=== PATIENT | female | born 1965 | race Hispanic/Latino ===

== ENCOUNTER 2016-05-31 12:14 | Emergency (ER) | payer MEDICAID ==
[2016-05-31 12:15] VITALS: BMI 23.0
[2016-05-31 12:35] VITALS: BP 129/86; PULSE 88; RESP 18; TEMP 98.6; O2SAT 97
--- NOTE | 2016-05-31 13:31 | RAD ---
PROCEDURE: Radiographs of the Right Shoulder HISTORY: shoulder pain x 2 weeks s/p fall COMPARISON: Chest x-ray 03/10/2016 FINDINGS: BONES: There is a minimally displaced fracture of the distal clavicle adjacent to the acromioclavicular joint. JOINTS: Normal. Glenohumeral and acromioclavicular joints preserved. No osteoarthritis. SOFT TISSUES: Normal. OTHER FINDINGS: None. IMPRESSION: Minimally displaced fracture of the superior surface of the distal clavicle
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
== END 2016-05-31 13:56 | disposition home or self-care (01) ==
LOC: ED 12:14
DX: S42.031A Displaced fracture of lateral end of right clavicle, initial encounter for closed fracture (principal); W01.0XXA Fall on same level from slipping, tripping and stumbling without subsequent striking against object, initial encounter; Z91.81 History of falling; F17.210 Nicotine dependence, cigarettes, uncomplicated
CPT/HCPCS: 73030; 96372; 99282; J1885

== ENCOUNTER 2016-06-11 13:47 | Emergency (ER) | payer MEDICAID ==
[2016-06-11 13:48] VITALS: BMI 23.0
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
[2016-06-11 14:11] VITALS: TEMP 97.5
[2016-06-11 14:16] LABS: ADD MANUAL DIFF? NO
[2016-06-11 14:20] LABS: BASO # 0.05 K/mm3 (0.0-2.0); BASO % 0.6 % (0.0-3.0); EOS # 0.2 (0.0-0.7); EOS % 2.6 % (1.5-5.0); GRAN # 3.99 (1.4-6.5); GRAN % 50.9 % (50.0-68.0); HEMATOCRIT 45.2 % (36.0-48.0); LYMPH # 3.2 (1.2-3.4); LYMPH % 40.9 % (22.0-35.0); MEAN CELL VOLUME 92.1 fL (80.0-105.0); MEAN CORPUSCULAR HEMOGLOBIN 32.8 pg (25.0-35.0); MEAN CORPUSCULAR HGB CONC 35.6 g/dl (31.0-37.0); MEAN PLATELET VOLUME 9.3 fl (7.0-11.0); MONO # 0.4 (0.1-0.6); PLATELET COUNT 202 10^3/uL (120.0-450.0); RED CELL DISTRIBUTION WIDTH 12.7 % (11.5-14.5); WHITE BLOOD COUNT 7.8 10^3/ul (4.5-11.0)
[2016-06-11 14:31] LABS: ALB/GLOB RATIO 1.4 (1.1-1.8); ALKALINE PHOSPHATASE 105 U/L (38-133); ALT/SGPT 88 U/L (7-56); AST/SGOT 103 U/L (15-39); BILIRUBIN,TOTAL 0.5 mg/dL (0.2-1.3); BLOOD UREA NITROGEN 8 mg/dL (7-21); CALCIUM 8.6 mg/dL (8.4-10.5); CARBON DIOXIDE 23 mmol/L (21-33); CHLORIDE 94 mmol/L (95-110); GFR AFRICAN-AMERICAN > 60; GLUCOSE,RANDOM 145 mg/dL (70-110); POTASSIUM 3.9 mmol/L (3.6-5.0); SODIUM 133 mmol/L (132-148)
--- NOTE | 2016-06-11 16:18 | RAD ---
HISTORY: psych COMPARISON: Comparison chest 03/10/2016 FINDINGS: LUNGS: Suspect mild bibasilar atelectasis. PLEURA: No significant pleural effusion identified, no pneumothorax apparent. CARDIOVASCULAR: Normal. OSSEOUS STRUCTURES: Minor degenerative changes both acromioclavicular joints right greater than left VISUALIZED UPPER ABDOMEN: Normal. OTHER FINDINGS: None. IMPRESSION: Mild bibasilar atelectasis.
[2016-06-11 16:23] LABS: URINE BILIRUBIN NEGATIVE (NEGATIVE); URINE BLOOD NEGATIVE (NEGATIVE); URINE GLUCOSE (UA) NEGATIVE (NEGATIVE); URINE KETONE NEGATIVE (NEGATIVE); URINE LEUKOCYTE ESTERASE NEGATIVE Leu/uL (NEGATIVE); URINE PROTEIN NEGATIVE mg/dL (<30 mg/dL); URINE UROBILINOGEN 0.2 E.U./dL (<1 E.U./dL)
[2016-06-11 16:24] LABS: URINE APPEARANCE CLEAR (CLEAR); URINE COLOR STRAW (YELLOW)
[2016-06-11 18:54] VITALS: RESP 18
[2016-06-11 19:34] VITALS: BP 120/73; PULSE 77; O2SAT 95
--- NOTE | 2016-06-12 10:17 | CARD ---
APPROVED REPORT EKG Measurement Heart [id number] <Conclusion> Normal sinus rhythm Normal ECG
== END 2016-06-11 19:41 | disposition home or self-care (01) ==
LOC: ED 13:47
DX: F10.129 Alcohol abuse with intoxication, unspecified (principal); J98.11 Atelectasis; Y90.8 Blood alcohol level of 240 mg/100 ml or more

== ENCOUNTER 2016-07-19 19:55 | Emergency (ER) | payer MEDICAID ==
[2016-07-19 19:56] VITALS: BMI 23.0
[2016-07-19 20:08] VITALS: RESP 17
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
[2016-07-19 21:27] VITALS: BP 141/71; PULSE 89; TEMP 98; O2SAT 98
== END 2016-07-19 21:30 | disposition home or self-care (01) ==
LOC: ED 19:55
DX: F10.129 Alcohol abuse with intoxication, unspecified (principal); Y90.9 Presence of alcohol in blood, level not specified

== ENCOUNTER 2016-08-13 22:26 | Emergency (ER) | payer MEDICAID ==
[2016-08-13 22:48] VITALS: TEMP 98; BMI 23.8
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
[2016-08-13 23:38] VITALS: RESP 20
[2016-08-14 01:37] VITALS: BP 120/59; PULSE 70; O2SAT 96
== END 2016-08-14 01:37 | disposition home or self-care (01) ==
LOC: ED 22:26
DX: F19.10 Other psychoactive substance abuse, uncomplicated (principal)

== ENCOUNTER 2016-08-25 18:57 | Inpatient (IN) | payer MEDICAID ==
[2016-08-25 19:10] VITALS: BMI 22.8
[2016-08-25 20:21] LABS: SALICYLATE < 1 mg/dL (2.0-20.0)
[2016-08-25 20:22] LABS: ACETAMINOPHEN < 10.0 ug/ml (10.0-20.0)
[2016-08-25 20:23] LABS: ALB/GLOB RATIO 1.4 (1.1-1.8); ALBUMIN 4.6 g/dL (3.0-4.8); ALT/SGPT 93 U/L (7-56); AST/SGOT 85 U/L (15-39); BLOOD UREA NITROGEN 22 mg/dL (7-21); CALCIUM 9.5 mg/dL (8.4-10.5); GFR AFRICAN-AMERICAN > 60; GFR NON-AFRICAN AMERICAN > 60
[2016-08-25 20:29] LABS: WHITE BLOOD COUNT 7.4 10^3/ul (4.5-11.0)
[2016-08-25 20:30] LABS: BASO % 0.5 % (0.0-3.0); EOS % 1.5 % (1.5-5.0); GRAN % 55.6 % (50.0-68.0); HEMOGLOBIN 16.2 gm/dL (12.0-16.0); LYMPH # 2.7 (1.2-3.4); MEAN CELL VOLUME 95.5 fL (80.0-105.0); MEAN CORPUSCULAR HEMOGLOBIN 33.1 pg (25.0-35.0); MEAN CORPUSCULAR HGB CONC 34.6 g/dl (31.0-37.0); MEAN PLATELET VOLUME 10.1 fl (7.0-11.0); MONO % 6.4 % (1.0-6.0); PLATELET COUNT 165 10^3/uL (120.0-450.0); RED CELL DISTRIBUTION WIDTH 13.6 % (11.5-14.5)
[2016-08-25 20:31] LABS: BASO # 0.04 K/mm3 (0.0-2.0); EOS # 0.1 (0.0-0.7); MONO # 0.5 (0.1-0.6)
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
[2016-08-25 21:59] LABS: URINE BILIRUBIN MODERATE (NEGATIVE); URINE BLOOD NEGATIVE (NEGATIVE); URINE GLUCOSE (UA) NEGATIVE (NEGATIVE); URINE LEUKOCYTE ESTERASE TRACE Leu/uL (NEGATIVE); URINE NITRATE NEGATIVE (NEGATIVE); URINE PROTEIN 30 mg/dL (<30 mg/dL); URINE UROBILINOGEN 0.2 E.U./dL (<1 E.U./dL)
[2016-08-25 22:02] LABS: URINE APPEARANCE CLOUDY (CLEAR); URINE COLOR YELLOW (YELLOW)
[2016-08-25 22:14] LABS: HCG,QUALITATIVE URINE NEGATIVE (NEGATIVE)
[2016-08-25 22:27] LABS: BARBITURATES, UR NEGATIVE (NEGATIVE); BENZODIAZEPINES, UR NEGATIVE (NEGATIVE); OPIATES, UR NEGATIVE (NEGATIVE); PHENCYCLIDINE, UR NEGATIVE (NEGATIVE)
[2016-08-25 22:31] LABS: URINE WBC 15 - 20 /hpf (0-6)
[2016-08-25 22:34] LABS: URINE BACTERIA MOD (NEG)
[2016-08-25 22:35] LABS: URINE TRIPLE PHOSPHATE CRYSTAL SMALL /hpf
[2016-08-25 23:47] VITALS: O2SAT 99
--- NOTE | 2016-08-26 02:12 | PCM.BM ---
<Sarah Edward - Last Filed: 08/26/16 02:14> Treatment Plan Problems - Problems identified on initial assessmt depression Date Initiated: 08/26/16 Time Initiated: 02:00 Assessment reference: NA Status: Active substance abuse Date Initiated: 08/26/16 Time Initiated: 02:00 Assessment reference: NA Status: Active Treatment assets and liabiliti Patient Assests: cooperative, insightful, motivated, ADL independent, negotiates basic needs, cognitively intact Patient Liabilities: financial problems, poor support system, relationship conflicts, substance abuse, medical problems, legal issue - Milieu Protocol Maintain good personal hygiene: daily Encourage regular showers, daily Remind patient to perform daily oral care, every shift Assist patient to perform ADL's Maintain personal safety: every shift Educate patient to report safety concerns to staff, every shift Monitor environment for contraband/sharps Medication safety: Monitor for expected outcome, potential side effects: every shift, Assess barriers to learning: every shift, Assess readiness for medication education: every shift <Felicia Monet - Last Filed: 08/28/16 14:44> - Diagnosis (1) Alcohol dependence Status: Acute Interventions: 08/26/16 13:46 Monitoring withdrawal symptoms Medical detoxification Pharmacotherapy for alcohol/benzos/opioid dependence Maintaining sobriety Relapse prevention Possible rehabilitation Motivational interviewing 12-step programs: AA meetings 08/28/16 14:44 (2) Alcohol withdrawal Status: Acute Interventions: 08/26/16 13:47 monitoring withdrawals benzos/med management MVI, thiamine folic acid detox protocol (3) Bipolar 1 disorder Status: Acute Interventions: 08/26/16 13:47 Psychoeducation Psychopharmacology/adjustment of medications as needed/ monitoring possible side effects Monitor blood level of mood stabilizers Evaluate pt on daily basis Compliance with medications and follow up appointments Suicide and homicide risk assessment and prevention, coping strategies, safety plan Relapse prevention Reduction of symptoms Improve functional status Family intervention As outpatient: cognitive behavioral therapy <Merissa Kraus - Last Filed: 08/28/16 14:50> Family Contact Family involvement: Famliy/SO not involved (Pt is estranged from family.)
[2016-08-26] MEDS: Multivitamin Therapeutic Tab PO SCH (09:15)
--- NOTE | 2016-08-26 11:02 | RAD ---
PROCEDURE: CHEST RADIOGRAPH, 1 VIEW HISTORY: pes COMPARISON: 06/11/2016. FINDINGS: LUNGS: Clear. PLEURA: No pneumothorax or pleural fluid seen. CARDIOVASCULAR: Normal. OSSEOUS STRUCTURES: No significant abnormalities. VISUALIZED UPPER ABDOMEN: Normal. OTHER FINDINGS: None. IMPRESSION: No active disease. No acute/significant interval changes.
--- NOTE | 2016-08-26 20:15 | CARD ---
APPROVED REPORT EKG Measurement Heart [id number] <Conclusion> Normal sinus rhythm Normal ECG
[2016-08-27] MEDS: Multivitamin Therapeutic Tab PO SCH (08:32)
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
[2016-08-28] MEDS: Multivitamin Therapeutic Tab PO SCH (09:02)
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
[2016-08-29] MEDS: Multivitamin Therapeutic Tab PO SCH (08:50)
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
[2016-08-30] MEDS: Multivitamin Therapeutic Tab PO SCH (08:30)
[2016-08-30 11:21] VITALS: RESP 20
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
[2016-08-31] MEDS: Multivitamin Therapeutic Tab PO SCH (08:56)
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
[2016-09-01] MEDS: Multivitamin Therapeutic Tab PO SCH (08:20)
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
[2016-09-02] MEDS: Multivitamin Therapeutic Tab PO SCH (07:47)
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
[2016-09-03 06:52] VITALS: BP 104/66; PULSE 64; TEMP 98.2
[2016-09-03] MEDS: Multivitamin Therapeutic Tab PO SCH (08:43)
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
== END 2016-09-03 10:12 | disposition home or self-care (01) | DRG 430 ==
LOC: ED 18:57 → ERH 21:31 → PSYC 22:44
PROVIDERS: ADMIT Psychiatry & Neurology Psychiatry; ATTEND Psychiatry & Neurology Psychiatry
DX: F31.9 Bipolar disorder, unspecified (principal); F10.239 Alcohol dependence with withdrawal, unspecified; F41.9 Anxiety disorder, unspecified; F17.210 Nicotine dependence, cigarettes, uncomplicated; Y90.0 Blood alcohol level of less than 20 mg/100 ml; Z91.14 Patient's other noncompliance with medication regimen

== ENCOUNTER 2016-10-12 22:58 | Emergency (ER) | payer MEDICAID ==
[2016-10-12 23:06] VITALS: BP 122/62; RESP 18; TEMP 98; BMI 21.2
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
[2016-10-13 01:05] VITALS: PULSE 80; O2SAT 99
== END 2016-10-13 01:05 | disposition left against medical advice (07) ==
LOC: ED 22:58
DX: S01.01XA Laceration without foreign body of scalp, initial encounter (principal); S00.83XA Contusion of other part of head, initial encounter; S09.90XA Unspecified injury of head, initial encounter; Y04.0XXA Assault by unarmed brawl or fight, initial encounter; Y92.009 Unspecified place in unspecified non-institutional (private) residence as the place of occurrence of the external cause

== ENCOUNTER 2016-10-13 01:51 | Emergency (ER) | payer MEDICAID ==
[2016-10-13 01:51] VITALS: BMI 21.2
[2016-10-13 02:05] VITALS: RESP 18
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
[2016-10-13 06:48] VITALS: BP 129/77; PULSE 82; TEMP 98; O2SAT 97
[2016-10-13] MEDS ORDERED: TDAP Vaccine 0.5 mL Syr IM ONE (07:03)
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
== END 2016-10-13 07:22 | disposition home or self-care (01) ==
LOC: ED 01:51
DX: S01.01XA Laceration without foreign body of scalp, initial encounter (principal); S00.83XA Contusion of other part of head, initial encounter; S96.911A Strain of unspecified muscle and tendon at ankle and foot level, right foot, initial encounter; S09.90XA Unspecified injury of head, initial encounter; Y04.0XXA Assault by unarmed brawl or fight, initial encounter; Z23 Encounter for immunization

== ENCOUNTER 2016-10-13 17:22 | Inpatient (IN) | payer MEDICAID ==
[2016-10-13 17:35] VITALS: BMI 22.1
[2016-10-13 18:12] LABS: URINE APPEARANCE CLEAR (CLEAR); URINE BILIRUBIN NEGATIVE (NEGATIVE); URINE BLOOD NEGATIVE (NEGATIVE); URINE COLOR YELLOW (YELLOW); URINE GLUCOSE (UA) NEGATIVE (NEGATIVE); URINE KETONE NEGATIVE (NEGATIVE); URINE LEUKOCYTE ESTERASE NEGATIVE Leu/uL (NEGATIVE); URINE PROTEIN TRACE mg/dL (<30 mg/dL); URINE UROBILINOGEN 0.2 E.U./dL (<1 E.U./dL)
[2016-10-13 18:20] LABS: URINE RBC 0 - 2 /hpf (0-2); URINE WBC 0 - 2 /hpf (0-6)
[2016-10-13 18:21] LABS: URINE BACTERIA RARE (NEG)
[2016-10-13 18:21] LABS: BASO # 0.04 K/mm3 (0.0-2.0); BASO % 0.5 % (0.0-3.0); EOS # 0.1 (0.0-0.7); EOS % 0.8 % (1.5-5.0); GRAN # 5.25 (1.4-6.5); GRAN % 63.1 % (50.0-68.0); HEMATOCRIT 43.3 % (36.0-48.0); LYMPH # 2.3 (1.2-3.4); LYMPH % 27.2 % (22.0-35.0); MEAN CELL VOLUME 94.5 fl (80.0-105.0); MEAN CORPUSCULAR HEMOGLOBIN 33.8 pg (25.0-35.0); MEAN CORPUSCULAR HGB CONC 35.8 g/dl (31.0-37.0); MEAN PLATELET VOLUME 9.4 fl (7.0-11.0); MONO # 0.7 (0.1-0.6); MONO % 8.4 % (1.0-6.0); RED CELL DISTRIBUTION WIDTH 13.3 % (11.5-14.5); WHITE BLOOD COUNT 8.3 10^3/ul (4.5-11.0)
[2016-10-13 18:35] LABS: ALB/GLOB RATIO 1.6 (1.1-1.8); ALKALINE PHOSPHATASE 93 U/L (38-133); ALT/SGPT 126 U/L (7-56); AST/SGOT 114 U/L (15-39); BILIRUBIN,TOTAL 0.9 mg/dL (0.2-1.3); BLOOD UREA NITROGEN 15 mg/dL (7-21); CALCIUM 9.8 mg/dL (8.4-10.5); CARBON DIOXIDE 24 mmol/L (21-33); CHLORIDE 104 mmol/L (98-107); GFR AFRICAN-AMERICAN > 60; GLUCOSE,RANDOM 102 mg/dL (70-110); SODIUM 139 mmol/L (132-148); TOTAL PROTEIN 7.3 g/dL (5.8-8.3)
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
[2016-10-13] MEDS ORDERED: Alum-Mag Hydrox-Simethicone Susp (30 mL) PO PRN (21:00)
[2016-10-13] MEDS ORDERED: Magnesium Hydroxide Susp 30 ml UD PO PRN (21:00)
[2016-10-14 08:56] LABS: CHOLESTEROL 201 mg/dL (130-200)
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
--- NOTE | 2016-10-14 13:29 | CARD ---
APPROVED REPORT EKG Measurement Heart [id number] <Conclusion> Normal sinus rhythm Normal ECG
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
[2016-10-15 09:06] LABS: ALB/GLOB RATIO 1.4 (1.1-1.8); ALKALINE PHOSPHATASE 79 U/L (38-133); ALT/SGPT 123 U/L (7-56); AST/SGOT 128 U/L (15-39); BILIRUBIN,DIRECT 0.4 mg/dL (0.0-0.4); BILIRUBIN,TOTAL 1.1 mg/dL (0.2-1.3); BLOOD UREA NITROGEN 20 mg/dL (7-21); CALCIUM 9.5 mg/dL (8.4-10.5); CARBON DIOXIDE 25 mmol/L (21-33); CHLORIDE 103 mmol/L (95-110); GFR AFRICAN-AMERICAN > 60; GLUCOSE,RANDOM 96 mg/dL (70-110); POTASSIUM 4.1 mmol/L (3.6-5.0); SODIUM 138 mmol/L (132-148); TOTAL PROTEIN 7.3 g/dL (5.8-8.3)
[2016-10-15 09:09] LABS: HEMATOCRIT 45.7 % (36.0-48.0); MEAN CELL VOLUME 95.8 fl (80.0-105.0); MEAN CORPUSCULAR HEMOGLOBIN 31.9 pg (25.0-35.0); MEAN CORPUSCULAR HGB CONC 33.3 g/dl (31.0-37.0); MEAN PLATELET VOLUME 9.8 fl (7.0-11.0); WHITE BLOOD COUNT 5.8 10^3/ul (4.5-11.0)
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
[2016-10-16 07:06] VITALS: RESP 16
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
--- NOTE | 2016-10-16 10:11 | US ---
HISTORY: HI LFTS COMPARISON: None. TECHNIQUE: Grayscale imaging was performed. FINDINGS: LIVER: Measures 15.2 cm. There is diffuse increased echogenicity of the liver parenchyma. No mass. No intrahepatic bile duct dilatation. GALLBLADDER: There are no gallstones, wall thickening or pericholecystic fluid. The sonographic Morales's sign is negative. COMMON BILE DUCT: Measures 2.4 mm. No stones. No dilatation. PANCREAS: Obscured by bowel gas. RIGHT KIDNEY: Measures 10.3cm. Normal echogenicity. No calculus, mass, or hydronephrosis. LEFT KIDNEY: Measures 10.8cm. Normal echogenicity. No calculus, mass, or hydronephrosis. SPLEEN: Normal in size and contour. No mass. AORTA: No aneurysmal dilatation. IVC: Unremarkable. OTHER FINDINGS: None. IMPRESSION: Hepatic steatosis. No cholelithiasis or biliary dilatation.
--- NOTE | 2016-10-16 14:07 | PN ---
DATE: SUBJECTIVE: I saw her sitting up in bed. She slept fairly well. She is still depressed. She has not participated much yet. She is eating fairly well. Basically, spends her day in bed. I encouraged her to participate today getting self out there. She is on Ativan, Desyrel, Maalox, milk of magnesia, Nicoderm, Norvasc, Prozac, Seroquel, and Tylenol. PHYSICAL EXAMINATION: VITAL SIGNS: 97.8 temperature, 58 pulse, 114/75 blood pressure, 16 respiratory rate, 96% O2 sat room air. HEENT: Head is traumatic, normocephalic. The left side of the face is black and blue around the eyes. It is definitely getting less. Less pain. Mouth moist. NECK: Supple. HEART: Regular rate. LUNGS: Clear to auscultation. ABDOMEN: Soft, nontender. EXTREMITIES: No edema. Left arm and left legs ecchymosis are getting less also from the bruises. LABORATORY DATA: She had a 5.8 white count, 15.2 hemoglobin, 171 platelets yesterday. 138 sodium, potassium 4.1, BUN of 20, creatinine 0.7, calcium is 9.5. The liver enzymes were elevated. AST is 128, ALT is 123. I believe I repeated them today, they are pending this morning. We will keep an eye on the liver. This is a consult with GI for the elevated liver enzymes muscle breakdown. We will follow that. Continue with aggressive treatment and care on Alyssa Werner. We will check her labs tomorrow also. Fernando Ballard DO MTDD
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
[2016-10-17 08:34] LABS: HEMATOCRIT 42.1 % (36.0-48.0); MEAN CELL VOLUME 96.8 fl (80.0-105.0); MEAN CORPUSCULAR HEMOGLOBIN 31.7 pg (25.0-35.0); MEAN CORPUSCULAR HGB CONC 32.8 g/dl (31.0-37.0); MEAN PLATELET VOLUME 9.5 fl (7.0-11.0); WHITE BLOOD COUNT 5.2 10^3/ul (4.5-11.0)
[2016-10-17 08:50] LABS: ALB/GLOB RATIO 1.4 (1.1-1.8); ALKALINE PHOSPHATASE 73 U/L (38-133); ALT/SGPT 114 U/L (7-56); AST/SGOT 87 U/L (15-39); BILIRUBIN,TOTAL 0.8 mg/dL (0.2-1.3); BLOOD UREA NITROGEN 20 mg/dL (7-21); CALCIUM 9.2 mg/dL (8.4-10.5); CARBON DIOXIDE 27 mmol/L (21-33); CHLORIDE 103 mmol/L (95-110); GFR AFRICAN-AMERICAN > 60; GLUCOSE,RANDOM 89 mg/dL (70-110); POTASSIUM 4.1 mmol/L (3.6-5.0); SODIUM 138 mmol/L (132-148); TOTAL PROTEIN 6.6 g/dL (5.8-8.3)
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
--- NOTE | 2016-10-18 12:31 | PN ---
SUBJECTIVE: I saw her in the psychiatric floor, resting in bed. She slept well. She is feeling better. The swelling in the face, the arms and legs are decreasing. Better spirits. She is participating in groups, it makes her little less depressed. PHYSICAL EXAMINATION: VITAL SIGNS: She has 98.3 temperature, 60 pulse, 104/68 blood pressure, 16 respiratory rate, 94% to 95% O2 sat on room air, but she is also telling me low energy and she feels weak. MEDICATIONS: She is currently on Ativan, Desyrel, Maalox, milk of magnesia, Nicoderm, Norvasc, Prozac, Seroquel and Tylenol. LABORATORY DATA: She has a 5.2 white count, 13.8 hemoglobin and 42.1 hematocrit with 179 platelets. Sodium 138, potassium 4.1, BUN 20 and creatinine 0.7. GFR is greater than 60. Sugar is 89 and calcium is 9.2. Total bilirubin is 0.8. AST is coming down to 87, ALT is coming down to 114 and alkaline phosphatase is 73. TSH is 3.46. Urine was clean. Negative . Toxicology was okay. Immunotherapy was negative so far. I will order an iron test. GI is coming to see her for the elevated liver enzymes, could be chronic hepatitis C virus. Continue with aggressive treatment and care in the psychiatric unit. I will order iron level. I encouraged her to participate in psych groups and take her medication. Fernando Ballard DO
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
[2016-10-19 07:33] VITALS: BP 120/78; PULSE 59; TEMP 98; O2SAT 93
[2016-10-19 08:46] LABS: ALB/GLOB RATIO 1.5 (1.1-1.8); BILIRUBIN,DIRECT 0.3 mg/dL (0.0-0.4); BILIRUBIN,TOTAL 0.5 mg/dL (0.2-1.3); TOTAL PROTEIN 7.2 g/dL (5.8-8.3)
[2016-10-19 08:54] LABS: IRON 181 ug/dL (45-180)
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
[2016-10-19 18:54] LABS: LKM-1 Ab (IgG) <=20.0 U (<=20.0)
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
== END 2016-10-19 16:01 | disposition home or self-care (01) | DRG 430 ==
LOC: ED 17:22 → PSYC 19:59
PROVIDERS: ADMIT Psychiatry & Neurology Addiction Medicine; ATTEND Psychiatry & Neurology Addiction Medicine
PROC: GZ3ZZZZ Medication Management (ICD-10-PCS; principal; 2016-10-14)
DX: F31.9 Bipolar disorder, unspecified (principal); R45.851 Suicidal ideations; K86.1 Other chronic pancreatitis; B18.2 Chronic viral hepatitis C; F10.239 Alcohol dependence with withdrawal, unspecified; I10 Essential (primary) hypertension; S00.83XA Contusion of other part of head, initial encounter; S40.022A Contusion of left upper arm, initial encounter; S80.12XA Contusion of left lower leg, initial encounter; Y09 Assault by unspecified means; R79.89 Other specified abnormal findings of blood chemistry; G47.00 Insomnia, unspecified; F41.9 Anxiety disorder, unspecified; F17.210 Nicotine dependence, cigarettes, uncomplicated; Z91.14 Patient's other noncompliance with medication regimen; Y07.03 Male partner, perpetrator of maltreatment and neglect; Y93.9 Activity, unspecified; Y92.9 Unspecified place or not applicable; Y99.9 Unspecified external cause status; Z91.5 Personal history of self-harm

== ENCOUNTER 2017-04-13 21:43 | Emergency (ER) | payer MEDICAID ==
[2017-04-13 21:43] VITALS: BMI 21.2
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
[2017-04-13 23:35] LABS: HEMOGLOBIN 16.9 g/dL (12.0-16.0); MEAN CELL VOLUME 96.6 fl (80.0-105.0); MEAN CORPUSCULAR HEMOGLOBIN 33.9 pg (25.0-35.0); MEAN CORPUSCULAR HGB CONC 35.1 g/dl (31.0-37.0); MEAN PLATELET VOLUME 10.5 fl (7.0-11.0); RBC 4.99 10^6/uL (3.5-6.1); RED CELL DISTRIBUTION WIDTH 12.8 % (11.5-14.5); WHITE BLOOD COUNT 6.4 10^3/ul (4.5-11.0)
[2017-04-13 23:43] LABS: ALB/GLOB RATIO 1.4 (1.1-1.8); ALBUMIN 4.4 g/dL (3.0-4.8); ALT/SGPT 104 U/L (7-56); AST/SGOT 97 U/L (14-36); BLOOD UREA NITROGEN 6 mg/dL (7-21); CALCIUM 9.4 mg/dL (8.4-10.5); GFR AFRICAN-AMERICAN > 60; GFR NON-AFRICAN AMERICAN > 60
[2017-04-14 00:22] LABS: BARBITURATES, UR NEGATIVE (NEGATIVE); BENZODIAZEPINES, UR POSITIVE (NEGATIVE); OPIATES, UR NEGATIVE (NEGATIVE); PHENCYCLIDINE, UR NEGATIVE (NEGATIVE)
--- NOTE | 2017-04-14 07:16 | ED PDOC ---
Physical Exam Vital Signs Temp Pulse Resp BP Pulse Ox 04/14/17 13:17 98 F 65 18 122/47 L 98 04/14/17 11:00 98 F 89 18 93/61 L 99 04/14/17 08:08 98 F 75 18 100/48 L 96 04/14/17 06:00 98.4 F 67 16 103/57 L 100 04/14/17 04:00 98.3 F 68 16 107/59 L 99 04/14/17 02:00 98.4 F 70 16 100/63 100 04/14/17 00:00 98.4 F 70 16 100/82 99 04/13/17 22:26 98.3 F 81 18 93/59 L 94 L Medical Decision Making ED Course and Treatment: 04/14/17 07:15 Patient endorsed to me from previous shift. Clinically sober at this time. Not tremulous or tachycardic. No abdominal pain. No vomiting. Not tachycardic or hypertensive. No history of gi bleeding. Neuro intact. Expressed suicidal ideation. Awaiting PES evaluation. 04/14/17 12:19 Patient is medically cleared for mental health evaluation and admission for current examination. 04/14/17 14:00 Patient ambulatory. Not tremulous. Steady gait. Denies chest pain or shortness of breath. NOt tremulous. 04/14/17 18:55 Awaiting disposition from mental health. Patient denies chest pain or shortness of breath. Denies abdominal pain. Current treatment plan reviewed with patient. 04/14/17 18:55 Will endorse patient to Dr. Xiong for serial exams, final disposition. 04/14/17 18:56 Saturations 99%. Lungs clear. - Lab Interpretations Lab Results: 04/13/17 23:18 04/13/17 23:18 Lab Results 04/13/17 23:18: Urine Opiates Screen Negative, Urine Methadone Screen Negative, Ur Barbiturates Screen Negative, Ur Phencyclidine Scrn Negative, Ur Amphetamines Screen Negative, U Benzodiazepines Scrn Positive, U Oth Cocaine Metabols Negative, U Cannabinoids Screen Negative 04/13/17 23:18: Alcohol, Quantitative 100 H 04/13/17 23:18: WBC 6.4 D, RBC 4.99, Hgb 16.9 H D, Hct 48.2 H, MCV 96.6, MCH 33.9, MCHC 35.1, RDW 12.8, Plt Count 148, MPV 10.5 04/13/17 23:18: Sodium 139, Potassium 3.4 L, Chloride 102, Carbon Dioxide 22, Anion Gap 19, BUN 6 L, Creatinine 0.7, Est GFR ( Amer) > 60, Est GFR (Non -Af Amer) > 60, Random Glucose 116 H, Calcium 9.4, Total Bilirubin 0.6, AST 97 H , ALT 104 H, Alkaline Phosphatase 86, Total Protein 7.5, Albumin 4.4, Globulin 3.2, Albumin/Globulin Ratio 1.4 - RAD Interpretation Radiology Orders: 04/13/17 22:57 CHEST PORTABLE [RAD] Stat - Medication Orders Current Medication Orders: Escitalopram Oxalate (Lexapro) 5 mg PO HS CHELLY Lorazepam (Ativan) 0.5 mg PO HS CHELLY Discontinued Medications Lorazepam (Ativan) 0.5 mg PO STAT STA Stop: 04/14/17 15:31 Last Admin: 04/14/17 17:21 Dose: 0.5 mg Potassium Chloride (K-Dur 20 Meq Er Tab) 20 meq PO STAT STA Stop: 04/14/17 12:20 Last Admin: 04/14/17 12:24 Dose: 20 meq Disposition/Present on Arrival - Present on Arrival Any Indicators Present on Arrival: No History of DVT/PE: No History of Uncontrolled Diabetes: No Urinary Catheter: No History of Decub. Ulcer: No History Surgical Site Infection Following: None - Disposition Have Diagnosis and Disposition been Completed?: No Diagnosis: Depression with suicidal ideation Disposition Time: 19:00 Patient Problems: Current Active Problems Problem Status Onset Depression with suicidal ideation Acute Condition: STABLE Referrals: Zuleyma Gonzales MD [Primary Care Provider] - Follow up with primary Forms: [employer] (Syriac)
--- NOTE | 2017-04-14 09:04 | RAD ---
HISTORY: medical clearance COMPARISON: 08/25/2016 FINDINGS: LUNGS: Ill-defined vaguely nodular opacity at right base. Further evaluation advised. Possible rounded pneumonia. Possible pulmonary mass. New since prior examination. PLEURA: No significant pleural effusion identified, no pneumothorax apparent. CARDIOVASCULAR: Normal. OSSEOUS STRUCTURES: No significant abnormalities. VISUALIZED UPPER ABDOMEN: Normal. OTHER FINDINGS: None. IMPRESSION: Vaguely nodular opacity at right base. Further evaluation is advised.
--- NOTE | 2017-04-14 10:22 | CARD ---
APPROVED REPORT EKG Measurement Heart [id number] <Conclusion> Normal sinus rhythm Incomplete right bundle branch block NSSTW changes Prolonged QTc
[2017-04-14] MEDS ORDERED: Potassium Chloride 20 mEq ER Tab PO STA (12:19)
--- NOTE | 2017-04-14 20:04 | ED PDOC ---
Physical Exam - Physical Exam Narrative Physical Exam (Text): 04/14/17 20:02 Case was reendorsed back to me from .Pt. resting comfortably.Awaiting placement /bed availability for admission. Vital Signs Temp Pulse Resp BP Pulse Ox 04/14/17 22:39 65 18 108/47 L 96 04/14/17 20:07 56 L 17 105/63 96 04/14/17 13:17 98 F 65 18 122/47 L 98 04/14/17 11:00 98 F 89 18 93/61 L 99 04/14/17 08:08 98 F 75 18 100/48 L 96 04/14/17 06:00 98.4 F 67 16 103/57 L 100 04/14/17 04:00 98.3 F 68 16 107/59 L 99 04/14/17 02:00 98.4 F 70 16 100/63 100 04/14/17 00:00 98.4 F 70 16 100/82 99 04/13/17 22:26 98.3 F 81 18 93/59 L 94 L Medical Decision Making - Lab Interpretations Lab Results: 04/13/17 23:18 04/13/17 23:18 Lab Results 04/14/17 01:00: Urine Color Yellow, Urine Appearance Clear, Urine pH 6.0, Ur Specific [place] >= 1.030, Urine Protein Negative, Urine Glucose (UA) Negative, Urine Ketones Negative, Urine Blood Negative, Urine Nitrate Negative, Urine Bilirubin Negative, Urine Urobilinogen 0.2, Ur Leukocyte Esterase Negative 04/13/17 23:18: Urine Opiates Screen Negative, Urine Methadone Screen Negative, Ur Barbiturates Screen Negative, Ur Phencyclidine Scrn Negative, Ur Amphetamines Screen Negative, U Benzodiazepines Scrn Positive, U Oth Cocaine Metabols Negative, U Cannabinoids Screen Negative 04/13/17 23:18: Alcohol, Quantitative 100 H 04/13/17 23:18: WBC 6.4 D, RBC 4.99, Hgb 16.9 H D, Hct 48.2 H, MCV 96.6, MCH 33.9, MCHC 35.1, RDW 12.8, Plt Count 148, MPV 10.5 04/13/17 23:18: Sodium 139, Potassium 3.4 L, Chloride 102, Carbon Dioxide 22, Anion Gap 19, BUN 6 L, Creatinine 0.7, Est GFR ( Amer) > 60, Est GFR (Non -Af Amer) > 60, Random Glucose 116 H, Calcium 9.4, Total Bilirubin 0.6, AST 97 H , ALT 104 H, Alkaline Phosphatase 86, Total Protein 7.5, Albumin 4.4, Globulin 3.2, Albumin/Globulin Ratio 1.4 - RAD Interpretation Radiology Orders: 04/13/17 22:57 CHEST PORTABLE [RAD] Stat - Medication Orders Current Medication Orders: Escitalopram Oxalate (Lexapro) 5 mg PO HS CHELLY Last Admin: 04/14/17 23:00 Dose: 5 mg Lorazepam (Ativan) 0.5 mg PO HS CHELLY Last Admin: 04/14/17 23:00 Dose: 0.5 mg Discontinued Medications Lorazepam (Ativan) 0.5 mg PO STAT STA Stop: 04/14/17 15:31 Last Admin: 04/14/17 17:21 Dose: 0.5 mg Potassium Chloride (K-Dur 20 Meq Er Tab) 20 meq PO STAT STA Stop: 04/14/17 12:20 Last Admin: 04/14/17 12:24 Dose: 20 meq - Transfer of Care Patient signed out to Dr:: Lila Other: Awaiting placement/final disposition Disposition/Present on Arrival - Present on Arrival Any Indicators Present on Arrival: No History of DVT/PE: No History of Uncontrolled Diabetes: No Urinary Catheter: No History of Decub. Ulcer: No History Surgical Site Infection Following: None - Disposition Have Diagnosis and Disposition been Completed?: No Diagnosis: Depression with suicidal ideation Disposition Time: 07:00 Patient Problems: Current Active Problems Problem Status Onset Depression with suicidal ideation Acute Condition: STABLE Referrals: Zuleyma Gonzales MD [Primary Care Provider] - Follow up with primary Forms: [employer] (Georgian)
[2017-04-14 20:08] VITALS: O2SAT 96
[2017-04-15 01:22] LABS: URINE BILIRUBIN NEGATIVE (NEGATIVE); URINE BLOOD NEGATIVE (NEGATIVE); URINE GLUCOSE (UA) NEGATIVE (NEGATIVE); URINE LEUKOCYTE ESTERASE NEGATIVE Leu/uL (NEGATIVE); URINE NITRATE NEGATIVE (NEGATIVE); URINE PROTEIN NEGATIVE mg/dL (<30 mg/dL); URINE UROBILINOGEN 0.2 E.U./dL (<1 E.U./dL)
[2017-04-15 01:23] LABS: URINE APPEARANCE CLEAR (CLEAR); URINE COLOR YELLOW (YELLOW)
[2017-04-15 07:01] LABS: ALT/SGPT 88 U/L (7-56); AST/SGOT 97 U/L (14-36)
--- NOTE | 2017-04-15 09:15 | ED PDOC ---
Physical Exam Vital Signs Temp Pulse Resp BP Pulse Ox 04/15/17 06:42 68 17 110/52 L 96 04/14/17 22:39 65 18 108/47 L 96 04/14/17 20:07 56 L 17 105/63 96 04/14/17 13:17 98 F 65 18 122/47 L 98 04/14/17 11:00 98 F 89 18 93/61 L 99 04/14/17 08:08 98 F 75 18 100/48 L 96 04/14/17 06:00 98.4 F 67 16 103/57 L 100 04/14/17 04:00 98.3 F 68 16 107/59 L 99 04/14/17 02:00 98.4 F 70 16 100/63 100 04/14/17 00:00 98.4 F 70 16 100/82 99 04/13/17 22:26 98.3 F 81 18 93/59 L 94 L Medical Decision Making ED Course and Treatment: 04/15/17 09:13 Patient endorsed to me from previous shift pending disposition. Patient is ambulatory. No tremors. No headache. No chest pain or shortness of breath. No respiratory distress. Request for repeat labs. Patient's LFTs mildly elevated BUT NO ABDOMINAL PAIN, improved from earlier labs. Given lack of pain, patient made aware of lab tests and need for follow-up, but for current presentation is MEDICALLY CLEARED FOR PSYCHIATRIC EVALUATION AND ADMISSION, requires serial exams. Potassium has been supplemented. 04/15/17 13:20 Patient reevaluated by PES. Pt has reportedly accepted Dr. Santos at [facility]. - Lab Interpretations Lab Results: 04/13/17 23:18 04/13/17 23:18 Lab Results 04/15/17 06:20: AST 97 H, ALT 88 H 04/15/17 06:20: Acetaminophen < 10.0 L 04/14/17 01:00: Urine Color Yellow, Urine Appearance Clear, Urine pH 6.0, Ur Specific [place] >= 1.030, Urine Protein Negative, Urine Glucose (UA) Negative, Urine Ketones Negative, Urine Blood Negative, Urine Nitrate Negative, Urine Bilirubin Negative, Urine Urobilinogen 0.2, Ur Leukocyte Esterase Negative 04/13/17 23:18: Urine Opiates Screen Negative, Urine Methadone Screen Negative, Ur Barbiturates Screen Negative, Ur Phencyclidine Scrn Negative, Ur Amphetamines Screen Negative, U Benzodiazepines Scrn Positive, U Oth Cocaine Metabols Negative, U Cannabinoids Screen Negative 04/13/17 23:18: Alcohol, Quantitative 100 H 04/13/17 23:18: WBC 6.4 D, RBC 4.99, Hgb 16.9 H D, Hct 48.2 H, MCV 96.6, MCH 33.9, MCHC 35.1, RDW 12.8, Plt Count 148, MPV 10.5 04/13/17 23:18: Sodium 139, Potassium 3.4 L, Chloride 102, Carbon Dioxide 22, Anion Gap 19, BUN 6 L, Creatinine 0.7, Est GFR ( Amer) > 60, Est GFR (Non -Af Amer) > 60, Random Glucose 116 H, Calcium 9.4, Total Bilirubin 0.6, AST 97 H , ALT 104 H, Alkaline Phosphatase 86, Total Protein 7.5, Albumin 4.4, Globulin 3.2, Albumin/Globulin Ratio 1.4 - RAD Interpretation Radiology Orders: 04/13/17 22:57 CHEST PORTABLE [RAD] Stat - Medication Orders Current Medication Orders: Escitalopram Oxalate (Lexapro) 5 mg PO HS CHELLY Last Admin: 04/14/17 23:00 Dose: 5 mg Lorazepam (Ativan) 0.5 mg PO HS [facility] Last Admin: 04/14/17 23:00 Dose: 0.5 mg Discontinued Medications Lorazepam (Ativan) 0.5 mg PO STAT STA Stop: 04/14/17 15:31 Last Admin: 04/14/17 17:21 Dose: 0.5 mg Potassium Chloride (K-Dur 20 Meq Er Tab) 20 meq PO STAT STA Stop: 04/14/17 12:20 Last Admin: 04/14/17 12:24 Dose: 20 meq Disposition/Present on Arrival - Present on Arrival Any Indicators Present on Arrival: No History of DVT/PE: No History of Uncontrolled Diabetes: No Urinary Catheter: No History of Decub. Ulcer: No History Surgical Site Infection Following: None - Disposition Diagnosis: Depression with suicidal ideation Patient Problems: Current Active Problems Problem Status Onset Depression with suicidal ideation Acute Condition: STABLE Referrals: Zuleyma Gonzales MD [Primary Care Provider] - Follow up with primary Forms: [employer] (Indonesian)
[2017-04-15 13:51] VITALS: RESP 18
[2017-04-15 14:31] VITALS: BP 123/66; PULSE 61; TEMP 98.2
--- NOTE | 2017-04-15 16:22 | ED PDOC ---
ED Additional Note - Physician Additional Note Physician Additional Note: cxr was placed into PA review folder. X-ray results of the chest x-ray were discussed with dr. SUE at [facility] ; advised further evaluation of nodular opacity at right lung base. Chest x-ray FINDINGS: LUNGS: Ill-defined vaguely nodular opacity at right base. Further evaluation advised. Possible rounded pneumonia. Possible pulmonary mass. New since prior examination. PLEURA: No significant pleural effusion identified, no pneumothorax apparent. CARDIOVASCULAR: Normal. OSSEOUS STRUCTURES: No significant abnormalities. VISUALIZED UPPER ABDOMEN: Normal. OTHER FINDINGS: None. IMPRESSION: Vaguely nodular opacity at right base. Further evaluation is advised.
== END 2017-04-15 14:33 | disposition short-term general hospital (02) ==
LOC: ED 21:43
DX: F32.9 Major depressive disorder, single episode, unspecified (principal); R45.851 Suicidal ideations

== ENCOUNTER 2017-09-26 23:06 | Emergency (ER) | payer MEDICAID ==
[2017-09-26 23:18] VITALS: TEMP 97.7; BMI 24.0
[2017-09-26] MEDS: Naloxone 0.4 mg/ml Inj (Adult) ONE (23:19)
--- NOTE | 2017-09-26 23:24 | ED PDOC ---
Arrival/HPI <Owen Bland - Last Filed: 09/27/17 01:01> - General Historian: Patient, EMS - History of Present Illness Time/Duration: Prior to Arrival Symptom Onset: Sudden Symptom Course: Resolved <Javier Guthrie - Last Filed: 09/27/17 01:15> - General Time Seen by Provider: 09/26/17 23:18 - History of Present Illness Narrative History of Present Illness (Text): 09/27/17 00:25 Alyssa Werner is a 52 year old female, whose past medical history includes chronic alcohol abuse, hepatitis C, chronic pancreatitis, and bipolar depression , who presents to the Emergency department brought in by EMS for apparent overdose. EMS reports patient was found in dining room of her home after a friend called EMS because patient was becoming increasingly lethargic. Patient was not given any medication in the field. On arrival, patient is very lethargic and difficult to arouse. Once awoken, patient quickly falls back to sleep. She is taking short, shallow breaths with periods of apnea. Patient given Narcan in ED upon arrival with positive response. Once awoken, patient admits to recently re-starting heroin snorting 2 bags of heroin tonight. Patient states she currently feels fine and regrets using heroin tonight. Patient denies any suicidal ideation, homicidal ideation, fever, chills, chest pain, shortness of breath, nausea, vomiting, diarrhea, urinary symptoms, back pain, neck pain, headache, dizziness, or any other complaints. (Javier Guthrie) Past Medical History - Provider Review Nursing Documentation Reviewed: Yes - Infectious Disease Hx of Infectious Diseases: None - Tetanus Immunization Tetanus Immunization: Unknown - Past Medical History Past Medical History: Unable to Obtain - Cardiac Hx Hypertension: No - Pulmonary Hx Asthma: No Hx Bronchitis: No Hx Chronic Obstructive Pulmonary Disease (COPD): No Hx Emphysema: No Hx Pneumonia: No Hx Pulmonary Embolism: No Hx Sleep Apnea: No - Neurological Hx Alzheimer's Disease: No Hx Dementia: No Hx Migraine: No Hx Multiple Sclerosis: No Hx Parkinson's Disease: No Hx Seizures: Yes Hx Transient Ischemic Attacks (TIA): No - HEENT Hx HEENT Disorder: No - Renal Hx Renal Disorder: No - Endocrine/Metabolic Hx Endocrine Disorders: No - Hematological/Oncological Hx Cancer: No - Integumentary Hx Dermatological Disorder: No - Musculoskeletal/Rheumatological Hx Musculoskeletal Disorders: Yes Hx Falls: Yes - Gastrointestinal Hx Pancreatitis: Yes - Genitourinary/Gynecological Hx Sexually Transmitted Diseases: No - Psychiatric Hx Substance Use: Yes - Past Surgical History Past Surgical History: Unable to Obtain - Anesthesia Hx Anesthesia: Yes Hx Anesthesia Reactions: No Hx Malignant Hyperthermia: No - Suicidal Assessment Feels Threatened In Home Enviroment: No <Javier Guthrie - Last Filed: 09/27/17 01:15> Family/Social History - Physician Review Nursing Documentation Reviewed: Yes Family/Social History: Unknown Family HX Smoking Status: Heavy Smoker > 10 Cigarettes Daily Hx Alcohol Use: Yes Hx Substance Use: Yes Substance used: heroin Hx Substance Use Treatment: No <Javier Guthrie - Last Filed: 09/27/17 01:15> Allergies/Home Meds <Owen Bland - Last Filed: 09/27/17 01:01> <Javier Guthrie - Last Filed: 09/27/17 01:15> Allergies/Adverse Reactions: Allergies No Known Allergies Allergy (Verified 09/26/17 23:27) Review of Systems - Physician Review All systems were reviewed & negative as marked: Yes - Review of Systems Constitutional: Normal. absent: Fatigue, Fevers Eyes: Normal ENT: Normal Respiratory: Normal. absent: SOB Cardiovascular: Normal Gastrointestinal: Normal. absent: Abdominal Pain, Constipation, Diarrhea, Nausea, Vomiting Genitourinary Female: Normal. absent: Dysuria, Frequency, Hematuria Musculoskeletal: Normal Skin: Normal Neurological: Normal Endocrine: Normal Psychiatric: Normal. absent: Anxiety, Depression, Suicidal Ideation <Javier Guthrie - Last Filed: 09/27/17 01:15> Physical Exam <Owen Bland - Last Filed: 09/27/17 01:01> Vital Signs Reviewed: Yes (after admin of narcan, patient saturating 95% on RA) Temperature: Afebrile Blood Pressure: Normal Pulse: Regular Respiratory Rate: Normal Appearance: Positive for: Well-Appearing, Non-Toxic, Comfortable Pain Distress: None Mental Status: Positive for: Alert and Oriented X 3 - Systems Exam Head: Present: Atraumatic, Normocephalic Pupils: Present: PERRL Extroacular Muscles: Present: EOMI Conjunctiva: Present: Normal Nose (External): Present: Atraumatic Respiratory/Chest: Present: Clear to Auscultation, Good Air Exchange. No: Respiratory Distress, Accessory Muscle Use Cardiovascular: Present: Regular Rate and Rhythm, Normal S1, S2. No: Murmurs Abdomen: No: Tenderness, Distention, Peritoneal Signs Upper Extremity: Present: Edema, NORMAL PULSES, Other (no injection site mendez) Neurological: Present: GCS=15, CN II-XII Intact, Speech Normal, Motor Func Grossly Intact Skin: Present: Warm, Dry, Normal Color. No: Rashes Psychiatric: Present: Alert, Oriented x 3, Normal Insight, Normal Concentration <Javier Guthrie - Last Filed: 09/27/17 01:15> - Physical Exam Narrative Physical Exam (Text): 09/27/17 00:37 Prior to narcan: pupils pinpoint, patient difficult to arouse with periods of apnea. Documented PE after admin of narcan (Javier Guthrie) Vital Signs Temp Pulse Resp BP Pulse Ox 09/27/17 01:06 77 20 128/80 97 09/26/17 23:18 97.7 F 76 19 114/70 95 Medical Decision Making - EKG Interpretation Interpreted by ED Physician: Yes <Owen Bland - Last Filed: 09/27/17 01:01> Re-evaluation Time: 00:19 Reassessment Condition: Improved <Javier Guthrie - Last Filed: 09/27/17 01:15> ED Course and Treatment: 09/26/17 23:18 Patient given Narcan 0.4mg IVP Patient woke up instantly. Oxygen saturation greatly improved. Patient sitting up conversing, will continue to monitor. 09/27/17 00:17 Patient is conversing with clear and coherent speech. She is saturating at 95% on RA. No medical complaints at this time. 09/27/17 00:35 Patient is to be discharged home. Speech is clear, AAOx3. Patient's vital signs stable, saturating well. Discussed need for patient to discontinue using heroin , even if recreational. Patient agrees. (Javier Guthrie) - EKG Interpretation EKG Interpretation (Text): 09/27/17 01:02 [id number]: nsr at 89 bpm, nml qrs, nml axis, no acute sttw abn (Owen Bland) - Medication Orders Current Medication Orders: Discontinued Medications Naloxone HCl (Narcan) 0.4 mg IVP STAT STA Stop: 09/26/17 23:52 Last Admin: 09/26/17 23:57 Dose: Disposition/Present on Arrival <Owen Bland - Last Filed: 09/27/17 01:01> - Present on Arrival Any Indicators Present on Arrival: No History of DVT/PE: No History of Uncontrolled Diabetes: No Urinary Catheter: No History Surgical Site Infection Following: None - Disposition Have Diagnosis and Disposition been Completed?: Yes Disposition Time: 00:40 Patient Plan: Discharge <Javier Guthrie - Last Filed: 09/27/17 01:15> - Disposition Diagnosis: Accidental heroin overdose Disposition: HOME/ ROUTINE Condition: IMPROVED Discharge Instructions (ExitCare): Narcotic Overdose (DC) Additional Instructions: Patient counseled on no longer using heroin. Patient states she understands and agrees. Referrals: Fernando Ballard DO [Primary Care Provider] - Follow up with primary Forms: [employer] (Kiswahili)
[2017-09-26] MEDS: Naloxone 0.4 mg/ml Inj (Adult) IVP STA (23:57)
[2017-09-27 01:33] VITALS: BP 128/80; PULSE 77; RESP 20; O2SAT 97
--- NOTE | 2017-09-27 11:29 | CARD ---
APPROVED REPORT Date of service: 09/26/2017 EKG Measurement Heart [id number] <Conclusion> Normal sinus rhythm Nonspecific T wave abnormality Prolonged QT Abnormal ECG
== END 2017-09-27 01:14 | disposition home or self-care (01) ==
LOC: ED 23:06
DX: T40.1X1A Poisoning by heroin, accidental (unintentional), initial encounter (principal); Y92.001 Dining room of unspecified non-institutional (private) residence as the place of occurrence of the external cause
CPT/HCPCS: 93005; 99283; J2310

== ENCOUNTER 2017-12-09 03:19 | Emergency (ER) | payer MEDICAID, OTHER ==
[2017-12-09 03:30] VITALS: O2SAT 99; BMI 22.1
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
[2017-12-09 04:38] LABS: BASO # 0.03 K/mm3 (0.0-2.0); BASO % 0.3 % (0.0-3.0); EOS # 0.2 (0.0-0.7); EOS % 1.7 % (1.5-5.0); GRAN # 6.29 (1.4-6.5); HEMOGLOBIN 17.3 g/dL (12.0-16.0); LYMPH % 29.9 % (22.0-35.0); MEAN CELL VOLUME 95.1 fl (80.0-105.0); MEAN CORPUSCULAR HEMOGLOBIN 32.6 pg (25.0-35.0); MEAN CORPUSCULAR HGB CONC 34.3 g/dl (31.0-37.0); MONO # 0.5 (0.1-0.6); MONO % 5.1 % (1.0-6.0); RBC 5.31 10^6/uL (3.5-6.1); RED CELL DISTRIBUTION WIDTH 13.1 % (11.5-14.5)
[2017-12-09 04:58] LABS: ALB/GLOB RATIO 1.3 (1.1-1.8); ALBUMIN 4.6 g/dL (3.0-4.8); ALT/SGPT 54 U/L (7-56); AST/SGOT 72 U/L (14-36); BLOOD UREA NITROGEN 14 mg/dL (7-21); CALCIUM 9.1 mg/dL (8.4-10.5); GFR NON-AFRICAN AMERICAN > 60
[2017-12-09 05:10] LABS: TROPONIN I < 0.01 ng/mL
[2017-12-09 05:31] LABS: URINE BILIRUBIN NEGATIVE (NEGATIVE); URINE BLOOD NEGATIVE (NEGATIVE); URINE GLUCOSE (UA) NEGATIVE (NEGATIVE); URINE LEUKOCYTE ESTERASE TRACE Leu/uL (NEGATIVE); URINE PROTEIN NEGATIVE mg/dL (<30 mg/dL); URINE UROBILINOGEN 0.2 E.U./dL (<1 E.U./dL)
[2017-12-09 05:34] LABS: URINE APPEARANCE CLEAR (CLEAR); URINE COLOR LIGHT YELLOW (YELLOW)
[2017-12-09 05:36] LABS: URINE RBC 0 - 2 /hpf (0-2)
[2017-12-09 05:37] LABS: URINE BACTERIA RARE (NEG)
[2017-12-09 06:11] LABS: BENZODIAZEPINES, UR NEGATIVE (NEGATIVE)
[2017-12-09 06:14] LABS: OPIATES, UR NEGATIVE (NEGATIVE); PHENCYCLIDINE, UR NEGATIVE (NEGATIVE)
--- NOTE | 2017-12-09 07:04 | ED PDOC ---
Physical Exam Vital Signs Temp Pulse Resp BP Pulse Ox 12/09/17 03:29 98.4 F 79 18 125/78 99 Medical Decision Making ED Course and Treatment: 12/09/17 07:[address] Martinez with patient pending CTH and medical clearance for PES evaluation. 12/09/17 09:51 PES worker evaluated patient and states she is psychiatrically cleared for discharge. Patient is medically stable for discharge. - Lab Interpretations Lab Results: 12/09/17 04:23 12/09/17 04:23 Lab Results 12/09/17 05:00: Urine Color Light yellow, Urine Appearance Clear, Urine pH 6.0, Ur Specific [place] 1.010, Urine Protein Negative, Urine Glucose (UA) Negative, Urine Ketones Negative, Urine Blood Negative, Urine Nitrate Negative, Urine Bilirubin Negative, Urine Urobilinogen 0.2, Ur Leukocyte Esterase Trace H, Urine RBC 0 - 2, Urine WBC 1 - 3, Ur Epithelial Cells None, Urine Bacteria Rare 12/09/17 05:00: Urine Opiates Screen Negative, Urine Methadone Screen Negative, Ur Barbiturates Screen Pending, Ur Phencyclidine Scrn Negative, Ur Amphetamines Screen Negative, U Benzodiazepines Scrn Negative, U Oth Cocaine Metabols Negative, U Cannabinoids Screen Negative 12/09/17 04:23: Alcohol, Quantitative 275 H 12/09/17 04:23: Sodium 143, Potassium 4.4, Chloride 104, Carbon Dioxide 24, A nion Gap 19, BUN 14, Creatinine 0.8, Est GFR ( Amer) > 60, Est GFR (Non- Af Amer) > 60, Random Glucose 131 H, Calcium 9.1, Total Bilirubin 0.4, AST 72 H D, ALT 54, Alkaline Phosphatase 75, Troponin I < 0.01, Total Protein 7.9, Albumin 4.6, Globulin 3.4, Albumin/Globulin Ratio 1.3 12/09/17 04:23: WBC 10.0 D, RBC 5.31, Hgb 17.3 H, Hct 50.5 H, MCV 95.1, MCH 32.6, MCHC 34.3, RDW 13.1, Plt Count 234, MPV 10.0, Gran % 63.0, Lymph % (Auto) 29.9, [place] % (Auto) 5.1, Eos % (Auto) 1.7, Baso % (Auto) 0.3, Gran # 6.29, Lymph # (Auto) 3.0, [place] # (Auto) 0.5, Eos # (Auto) 0.2, Baso # (Auto) 0.03 - RAD Interpretation Narrative RAD Interpretations (Text): 12/09/2017 08:[address] IMPRESSION: Normal CT of the Head. No intracranial hemorrhage. Dictator: Luan Glaser MD Radiology Orders: 12/09/17 03:45 CXR [CHEST PORTABLE] [RAD] Stat 12/09/17 06:49 HEAD W/O CONTRAST [CT] Stat - Medication Orders Current Medication Orders: Discontinued Medications Famotidine (Pepcid) 20 mg PO STAT STA Stop: 12/09/17 06:34 Last Admin: 12/09/17 06:44 Dose: 20 mg Disposition/Present on Arrival - Present on Arrival Any Indicators Present on Arrival: No History of DVT/PE: No History of Uncontrolled Diabetes: No Urinary Catheter: No History of Decub. Ulcer: No History Surgical Site Infection Following: None - Disposition Have Diagnosis and Disposition been Completed?: Yes Diagnosis: Alcohol abuse, Depression Disposition Time: 09:55 Patient Plan: Discharge Patient Problems: Current Active Problems Problem Status Onset Alcohol abuse Acute Depression Acute Condition: GUARDED Discharge Instructions (ExitCare): Depression, Adult (DC), Alcohol Abuse and Alcoholism (DC) Referrals: Becca Ma MD [Medical Doctor] - Follow up with primary [facility] at [facility] [place] [Outside] - Follow up with primary Forms: [employer] (Spanish)
[2017-12-09 07:08] LABS: BARBITURATES, UR NEGATIVE (NEGATIVE)
[2017-12-09 08:32] VITALS: BP 100/62; PULSE 78; TEMP 98.3
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
--- NOTE | 2017-12-09 09:36 | CP.PCM.PCO ---
Addendum Addendum: 12/09/17 09:32 correction to ED documentation pt was not seen by this technical report writer in ED, moreover this technical report writer did not order any res traint for this patient and following statement is not accurate. "12/09/17 07:20 Patient noted to become belligerent with staff throwing furniture and being combative. Dr. Duarte(psychiatry) at the bedside ordering restraints."
[2017-12-09 09:49] VITALS: RESP 18
--- NOTE | 2017-12-09 10:47 | RAD ---
Date of service: 12/09/2017 HISTORY: preadmission - SI COMPARISON: 04/14/2017 FINDINGS: LUNGS: No active pulmonary disease. PLEURA: No significant pleural effusion identified, no pneumothorax apparent. CARDIOVASCULAR: Normal. OSSEOUS STRUCTURES: No significant abnormalities. VISUALIZED UPPER ABDOMEN: Normal. OTHER FINDINGS: None. IMPRESSION: No active disease.
--- NOTE | 2017-12-09 15:17 | CARD ---
APPROVED REPORT Date of service: 12/09/2017 EKG Measurement Heart [id number] <Conclusion> Normal sinus rhythm Normal ECG
== END 2017-12-09 10:05 | disposition home or self-care (01) ==
LOC: ED 03:19
DX: F32.9 Major depressive disorder, single episode, unspecified (principal); F10.10 Alcohol abuse, uncomplicated
CPT/HCPCS: 70450; 71045; 80053; 81001; 84484; 85025; 87086; 87181; 90791; 93005; 99285; G0480

== ENCOUNTER 2018-02-02 | Emergency (ER) | payer MEDICAID, OTHER ==
[2018-02-02 00:14] VITALS: BMI 21.2
--- NOTE | 2018-02-02 00:28 | ED PDOC ---
Arrival/HPI - General Time Seen by Provider: 02/02/18 00:03 Historian: Patient - History of Present Illness Narrative History of Present Illness (Text): 02/02/18 00:25 52 year old female, whose past medical history includes polysubstance abuse (alcohol, heroin and tobacco), anxiety, depression, and bipolar disorder, presents to the emergency department complaining of Suicidal Ideation with a plan after an having an argument with her significant other. Patient states she has a plan to overdose. She states she is noncompliant with her psych medication. The patient denies any fever, chills, chest pain, shortness of breath, abdominal pain, nausea, vomiting, diarrhea, urinary symptoms, back pain, neck pain, headache, dizziness, homicidal ideation, or any other complaints. PMD: Dr. Ballard Time/Duration: Prior to Arrival Symptom Onset: Gradual Symptom Course: Unchanged Activities at Onset: Light Context: Home Past Medical History - Provider Review Nursing Documentation Reviewed: Yes - Infectious Disease Hx of Infectious Diseases: None - Tetanus Immunization Tetanus Immunization: Unknown - Past Medical History Past Medical History: Unable to Obtain - Cardiac Hx Cardiac Disorders: No Hx Hypertension: No - Pulmonary Hx Tuberculosis: No - Neurological HX Cerebrovascular Accident: No Hx Seizures: Yes - HEENT Hx HEENT Disorder: No - Renal Hx Renal Disorder: No - Endocrine/Metabolic Hx Endocrine Disorders: No - Hematological/Oncological Hx Cancer: No - Integumentary Hx Dermatological Disorder: No - Musculoskeletal/Rheumatological Hx Musculoskeletal Disorders: Yes Hx Falls: Yes - Gastrointestinal Hx Pancreatitis: Yes - Genitourinary/Gynecological Hx Sexually Transmitted Diseases: No - Psychiatric Hx Psychophysiologic Disorder: Yes Hx Anxiety: Yes Hx Bipolar Disorder: Yes Hx Depression: Yes Hx Substance Use: Yes - Past Surgical History Past Surgical History: Unable to Obtain - Anesthesia Hx Anesthesia: Yes Hx Anesthesia Reactions: No Hx Malignant Hyperthermia: No - Suicidal Assessment Feels Threatened In Home Enviroment: No Family/Social History - Physician Review Nursing Documentation Reviewed: Yes Family/Social History: No Known Family HX Smoking Status: Heavy Smoker > 10 Cigarettes Daily Hx Alcohol Use: Yes Hx Substance Use: Yes Substance used: heroin Hx Substance Use Treatment: No Allergies/Home Meds Allergies/Adverse Reactions: Allergies No Known Allergies Allergy (Verified 12/09/17 03:39) Review of Systems - Physician Review All systems were reviewed & negative as marked: Yes - Review of Systems Constitutional: absent: Fevers, Other (Chills) Respiratory: absent: SOB Cardiovascular: absent: Chest Pain Gastrointestinal: absent: Abdominal Pain, Diarrhea, Nausea, Vomiting Genitourinary Female: absent: Dysuria, Frequency, Hematuria Musculoskeletal: absent: Back Pain, Neck Pain Neurological: absent: Headache, Dizziness Psychiatric: Suicidal Ideation. absent: Other (homicidal ideation) Physical Exam Vital Signs Reviewed: Yes Temperature: Afebrile Blood Pressure: Normal Pulse: Regular Respiratory Rate: Normal Appearance: Positive for: Well-Appearing, Non-Toxic, Comfortable Pain Distress: None Mental Status: Positive for: Alert and Oriented X 3 - Systems Exam Head: Present: Atraumatic, Normocephalic Pupils: Present: PERRL Extroacular Muscles: Present: EOMI Conjunctiva: Present: Normal Mouth: Present: Moist Mucous Membranes Neck: Present: Normal Range of Motion Respiratory/Chest: Present: Clear to Auscultation, Good Air Exchange. No: Respiratory Distress, Accessory Muscle Use Cardiovascular: Present: Regular Rate and Rhythm, Normal S1, S2. No: Murmurs Abdomen: No: Tenderness, Distention, Peritoneal Signs Back: Present: Normal Inspection Upper Extremity: Present: Normal Inspection. No: Cyanosis, Edema Lower Extremity: Present: Normal Inspection. No: Edema Neurological: Present: GCS=15, CN II-XII Intact, Speech Normal Skin: Present: Warm, Dry, Normal Color. No: Rashes Psychiatric: Present: Alert, Oriented x 3, Normal Insight, Normal Concentration Medical Decision Making ED Course and Treatment: 02/02/18 00:28 Impression: 52 year old female presents for sucidial ideation with a plan to overdose after having an argument with her boyfriend. Plan: -- Labs -- HCG Qualitative Urine -- Urinalysis -- EKG -- CXR -- One to One -- PES Eval -- Reassess and disposition Prior Visits: Notes and results from previous visits were reviewed. Progress Notes: 02/02/18 04:28 EKG shows NSR at 71 BPM with non-specific ST/T wave changes. Interpreted by me 02/02/18 04:32 CXR Impression: No acute disease. Patient is medically cleared. 02/02/18 04:33 PES seen and evaluated patient. Patient will be transferred to [facility] for psych admission. 02/02/18 06:39 case endorsed to day shift pending [facility]. - Lab Interpretations I have reviewed the lab results: Yes - Scribe Statement The provider has reviewed the documentation as recorded by the Oracio Cabrera Provider Scribe Attestation: All medical record entries made by the Scribe were at my direction and personally dictated by me. I have reviewed the chart and agree that the record accurately reflects my personal performance of the history, physical exam, medical decision making, and the department course for this patient. I have also personally directed, reviewed, and agree with the discharge instructions and disposition. Disposition/Present on Arrival - Present on Arrival Any Indicators Present on Arrival: No History of DVT/PE: No History of Uncontrolled Diabetes: No Urinary Catheter: No History Surgical Site Infection Following: None - Disposition Have Diagnosis and Disposition been Completed?: Yes Diagnosis: Depression, Suicidal ideation Disposition: Trans to Other Acute Care Hosp Disposition Time: 07:00 Condition: STABLE
[2018-02-02 01:45] LABS: BASO # 0.03 K/mm3 (0.0-2.0); BASO % 0.3 % (0.0-3.0); EOS # 0.3 (0.0-0.7); EOS % 2.5 % (1.5-5.0); GRAN # 6.2 (1.4-6.5); GRAN % 57.6 % (50.0-68.0); HEMOGLOBIN 16.1 g/dL (12.0-16.0); LYMPH # 3.4 (1.2-3.4); MEAN CELL VOLUME 94.6 fl (80.0-105.0); MEAN CORPUSCULAR HEMOGLOBIN 31.9 pg (25.0-35.0); MEAN CORPUSCULAR HGB CONC 33.8 g/dl (31.0-37.0); MEAN PLATELET VOLUME 10.5 fl (7.0-11.0); MONO # 0.8 (0.1-0.6); MONO % 7.6 % (1.0-6.0); RBC 5.04 10^6/uL (3.5-6.1); RED CELL DISTRIBUTION WIDTH 13.5 % (11.5-14.5); WHITE BLOOD COUNT 10.8 10^3/uL (4.5-11.0)
[2018-02-02 01:54] LABS: ALB/GLOB RATIO 1.4 (1.1-1.8); ALBUMIN 4.2 g/dL (3.0-4.8); CALCIUM 9.1 mg/dL (8.4-10.5)
[2018-02-02 01:56] LABS: ACETAMINOPHEN < 10.0 ug/ml (10.0-20.0); SALICYLATE < 1 mg/dL (2.0-20.0)
[2018-02-02 02:19] LABS: BARBITURATES, UR NEGATIVE (NEGATIVE); BENZODIAZEPINES, UR POSITIVE (NEGATIVE); OPIATES, UR POSITIVE (NEGATIVE); PHENCYCLIDINE, UR NEGATIVE (NEGATIVE)
[2018-02-02 02:25] LABS: URINE BILIRUBIN NEGATIVE (NEGATIVE); URINE BLOOD NEGATIVE (NEGATIVE); URINE GLUCOSE (UA) NEGATIVE (NEGATIVE); URINE LEUKOCYTE ESTERASE NEGATIVE Leu/uL (NEGATIVE); URINE PROTEIN NEGATIVE mg/dL (<30 mg/dL); URINE UROBILINOGEN 0.2 E.U./dL (<1 E.U./dL)
[2018-02-02 02:28] LABS: URINE APPEARANCE CLEAR (CLEAR); URINE COLOR LIGHT YELLOW (YELLOW)
[2018-02-02 04:40] VITALS: PULSE 70
[2018-02-02 06:30] VITALS: BP 120/61; RESP 16; TEMP 98.8; O2SAT 98
--- NOTE | 2018-02-02 07:19 | ED PDOC ---
Physical Exam Vital Signs Reviewed: Yes Vital Signs Temp Pulse Resp BP Pulse Ox 02/02/18 06:29 98.8 F 70 16 120/61 98 02/02/18 04:01 70 18 112/79 100 02/02/18 00:22 98.4 F 68 18 107/71 100 Temperature: Afebrile Blood Pressure: Normal Pulse: Regular Respiratory Rate: Normal Appearance: Positive for: Well-Appearing, Non-Toxic, Comfortable Pain Distress: None Mental Status: Positive for: Alert and Oriented X 3 Medical Decision Making ED Course and Treatment: 02/02/18 07:19: Case endorsed by Dr. Falk. Patient is a 52 year old female who presents to the emergency department expressing suicidal ideation. Patient accepted for admission by Dr. Smith. Transfer form signed. Pending transfer to [facility]. - Lab Interpretations Lab Results: 02/02/18 01:15 02/02/18 01:15 Lab Results 02/02/18 01:27: Urine HCG, Qual Negative 02/02/18 01:27: Urine Opiates Screen Positive H, Urine Methadone Screen Negative, Ur Barbiturates Screen Negative, Ur Phencyclidine Scrn Negative, Ur Amphetamines Screen Negative, U Benzodiazepines Scrn Positive H, U Oth Cocaine Metabols Negative, U Cannabinoids Screen Negative 02/02/18 01:27: Urine Color Light yellow, Urine Appearance Clear, Urine pH 6.0, Ur Specific [place] 1.025, Urine Protein Negative, Urine Glucose (UA) Negative, Urine Ketones Trace H, Urine Blood Negative, Urine Nitrate Negative, Urine Bi lirubin Negative, Urine Urobilinogen 0.2, Ur Leukocyte Esterase Negative 02/02/18 01:15: Alcohol, Quantitative 87 H 02/02/18 01:15: Salicylates < 1 L, Acetaminophen < 10.0 L 02/02/18 01:15: Sodium 139, Potassium 4.0, Chloride 104, Carbon Dioxide 28, Anion Gap 12, BUN 11, Creatinine 1.3 H, Est GFR ( Amer) 52, Est GFR (Non- Af Amer) 43, Random Glucose 93, Calcium 9.1, Magnesium 1.9, Total Bilirubin 0.4, AST 41 H D, ALT 46, Alkaline Phosphatase 60, Total Protein 7.2, Albumin 4.2, Globulin 3.0, Albumin/Globulin Ratio 1.4 02/02/18 01:15: WBC 10.8, RBC 5.04, Hgb 16.1 H, Hct 47.7, MCV 94.6, MCH 31.9, MCHC 33.8, RDW 13.5, Plt Count 182, MPV 10.5, Gran % 57.6, Lymph % (Auto) 32.0, [place] % (Auto) 7.6 H, Eos % (Auto) 2.5, Baso % (Auto) 0.3, Gran # 6.20, Lymph # (Auto) 3.4, [place] # (Auto) 0.8 H, Eos # (Auto) 0.3, Baso # (Auto) 0.03 - RAD Interpretation Radiology Orders: 02/02/18 03:46 CXR [CHEST PORTABLE] [RAD] Stat - Scribe Statement The provider has reviewed the documentation as recorded by the Scribe Sarah Robledo Provider Scribe Attestation: All medical record entries made by the Scribe were at my direction and personally dictated by me. I have reviewed the chart and agree that the record accurately reflects my personal performance of the history, physical exam, medical decision making, and the department course for this patient. I have also personally directed, reviewed, and agree with the discharge instructions and disposition. Disposition/Present on Arrival - Present on Arrival Any Indicators Present on Arrival: No History of DVT/PE: No History of Uncontrolled Diabetes: No Urinary Catheter: No History of Decub. Ulcer: No History Surgical Site Infection Following: None - Disposition Have Diagnosis and Disposition been Completed?: Yes Diagnosis: Depression, Suicidal ideation Disposition: Trans to Other Acute Care Hosp Disposition Time: 07:00 Patient Problems: Current Active Problems Problem Status Onset Alcohol abuse Acute Depression Acute Condition: STABLE Forms: [employer] ([employer])
--- NOTE | 2018-02-02 08:08 | RAD ---
Date of service: 02/02/2018 HISTORY: kathrine COMPARISON: 12/09/2017 FINDINGS: LUNGS: No active pulmonary disease. PLEURA: No significant pleural effusion identified, no pneumothorax apparent. CARDIOVASCULAR: No aortic atherosclerotic calcification present. Normal cardiac size. No pulmonary vascular congestion. OSSEOUS STRUCTURES: No significant abnormalities. VISUALIZED UPPER ABDOMEN: Normal. OTHER FINDINGS: None. IMPRESSION: No active disease.
--- NOTE | 2018-02-02 09:50 | CARD ---
APPROVED REPORT Date of service: 02/02/2018 EKG Measurement Heart [id number] <Conclusion> Normal sinus rhythm Possible Left atrial enlargement Borderline ECG
== END 2018-02-02 07:40 | disposition short-term general hospital (02) ==
LOC: ED
DX: F32.9 Major depressive disorder, single episode, unspecified (principal); R45.851 Suicidal ideations; F41.9 Anxiety disorder, unspecified; F19.10 Other psychoactive substance abuse, uncomplicated; F17.210 Nicotine dependence, cigarettes, uncomplicated